=== PATIENT | male | born 1970 | race African-American/Black ===

== ENCOUNTER 2020-10-02 23:04 | Emergency (ER) | payer OTHER ==
[2020-10-02 23:13] VITALS: BP 158/96; PULSE 78; TEMP 98; BMI 31.1
[2020-10-03] MEDS ORDERED: LIDOCAINE VISCOUS 2% ORAL/TOP 20 ML UNIT-DOSE CUP MM ONE (00:06)
[2020-10-03] MEDS ORDERED: SUCRALFATE 1 GM/10 ML UNIT DOSE CUPS PO ONE (00:09)
[2020-10-03] MEDS ORDERED: LIDOCAINE VISCOUS 2% ORAL/TOP 20 ML UNIT-DOSE CUP ONE (00:25)
[2020-10-03] MEDS ORDERED: FAMOTIDINE 10 MG TABLET PO ONE (00:34)
[2020-10-03] MEDS ORDERED: FAMOTIDINE 20 MG TABLET ONE (00:41)
== END 2020-10-03 01:34 | disposition home or self-care (01) ==
LOC: JER 23:04
DX: K21.9 Gastro-esophageal reflux disease without esophagitis (principal)
CPT/HCPCS: 93005; 93010; 99281-25